=== PATIENT | female | born 1965 | race Caucasian/White ===

== ENCOUNTER 2017-11-26 11:15 | Emergency (ER) | payer OTHER ==
[~2017-11-26] VITALS: Ht 167.6 cm; Wt 59.0 kg
--- NOTE | 2017-11-26 11:20 | ED GENERAL ADULT ---
History of Present Illness General Chief Complaint: ETOH/Drug Related Complaint Stated Complaint: SENT BY [facility] FOR CLEARANCE Source: patient Exam Limitations: no limitations Vital Signs & Intake/Output Vital Signs & Intake/Output Vital Signs Date Time Temp Pulse Resp B/P B/P Pulse O2 O2 Flow FiO2 Mean Ox Delivery Rate 11/27 645 98.2 78 20 155/95 11/27 0646 98.2 78 20 155/95 92 Room Air 11/27 0400 98.0 76 20 132/82 11/27 0205 98.1 86 18 149/88 100 Room Air 11/27 0200 98.1 86 18 149/88 11/27 0030 98.2 76 20 116/72 11/26 2236 98.4 82 18 142/80 11/26 2236 98.4 82 18 142/80 100 Room Air 11/26 2037 97.0 90 18 145/87 96 Room Air 11/26 2036 97.0 90 16 145/87 11/26 1756 98.6 89 16 159/94 11/26 1753 98.6 89 16 159/94 97 11/26 1510 98.3 101 16 154/92 11/26 1502 98.3 101 16 154/92 98 / 1302 98.2 88 20 152/90 95 05/ 1300 98.2 88 20 152/90 11/26 1225 Room Air 11/26 1119 97.9 122 20 160/98 96 Room Air ED Intake and Output 11/27 0000 11/26 1200 Intake Total Output Total Balance Patient 130 lb Weight Weight Reported by Patient Measurement Method Allergies Coded Allergies: No Known Allergies (11/26/17) Reconcile Medications No Known Home Medications Triage Note: PT SENT IN FOR HIGHWATCH CLEARENCE. STATES LAST ETOH WAS YESTERDAY. PT DENIES SEIZURES WITH ETOH DETOX. DENIES SI/HI Triage Nurses Notes Reviewed? yes Onset: Abrupt Duration: week(s): Timing: recent history HPI: 11/26/17 32-year-old female presents to the emergency department for clearance for [facility] for alcohol rehabilitation. She denies any withdrawal seizures. She denies any drug use. Denies any significant past medical history. (Shola Cuba DO) Past History Travel History Traveled to [place] past 21 day No Medical History Any Pertinent Medical History? see below for history Neurological: NONE EENT: NONE Cardiovascular: NONE Respiratory: NONE Gastrointestinal: NONE Hepatic: NONE Renal: NONE Musculoskeletal: NONE Psychiatric: alcohol dependence Endocrine: NONE Surgical History Surgical History: none Psychosocial History What is your primary language Slovenian Tobacco Use: Current Daily Use Daily Tobacco Use Amount/Type: => 5 Cigarettes daily ETOH Use: alcoholic Illicit Drug Use: denies illicit drug use Family History Hx Contributory? No (Shola Cuba DO) Review of Systems Review of Systems Constitutional: Denies: fever. EENTM: Reports: no symptoms. Respiratory: Reports: no symptoms. Cardiovascular: Reports: no symptoms. GI: Reports: no symptoms. Genitourinary: Reports: no symptoms. Musculoskeletal: Reports: no symptoms. Skin: Reports: no symptoms. Neurological/Psychological: Reports: no symptoms. Hematologic/Endocrine: Reports: no symptoms. Immunologic/Allergic: Reports: no symptoms. (Shola Cuba DO) Physical Exam Physical Exam General Appearance: alert, awake, anxious, mild distress Head: atraumatic, normal appearance Eyes: Bilateral: normal appearance, PERRL, EOMI. Ears, Nose, Throat: normal pharynx, normal ENT inspection Neck: normal inspection, supple Respiratory: normal breath sounds, chest non-tender, no respiratory distress Cardiovascular: regular rate/rhythm Peripheral Pulses: 4+ radial (R), 4+ radial (L) Gastrointestinal: non-tender Back: vertebral tenderness Extremities: normal inspection, normal range of motion, no edema Neurologic/Psych: no motor/sensory deficits, awake, alert, oriented x 3 Skin: intact, normal color, warm/dry Core Measures ACS in differential dx? No CVA/TIA Diagnosis: No Sepsis Present: No Sepsis Focused Exam Completed? No (Shola Cuba DO) Progress Differential Diagnoses I considered the following diagnoses in my evaluation of the patient: [Alcohol dependency, delirium tremens, alcoholic hallucinosis] Plan of Care: Orders Procedure Date/time Status CIWA 11/26 1212 Active URINE DRUG SCREEN FOR ER ONLY 11/26 1212 Complete ETHANOL 11/26 1212 Complete COMPREHENSIVE METABOLIC PANEL 11/26 1212 Complete CBC WITHOUT DIFFERENTIAL 11/26 1212 Complete Laboratory Tests 11/26/17 1245: Urine Opiates Screen < 100, Methadone Screen < 40, Barbiturate Screen < 60, Ur Phencyclidine Scrn < 6.00, Amphetamines Screen 155, U Benzodiazepines Scrn < 85, Urine Cocaine Screen < 50, Urine Cannabis Screen < 5.00 11/26/17 1241: Anion Gap 17 H, Estimated GFR > 60, BUN/Creatinine Ratio 22.5, Glucose 104 H, Calcium 8.9, Total Bilirubin 0.6, AST 195 H, ALT 101 H, Alkaline Phosphatase 84, Total Protein 8.0, Albumin 4.5, Globulin 3.5, Albumin/Globulin Ratio 1.3, CBC w Diff NO MAN DIFF REQ, RBC 3.55 L, MCV 101.6 H, MCH 34.8 H, MCHC 34.3, RDW 14.6 H, MPV 7.9, Gran % 68.2, Lymphocytes % 19.2 L, Monocytes % 11.6 H, Eosinophils % 0.6, Basophils % 0.4, Absolute Granulocytes 3.2, Absolute Lymphocytes 0.9 L, Absolute Monocytes 0.5, Absolute Eosinophils 0, Absolute Basophils 0, Serum Alcohol 156.0 Initial ED EKG: none (Shola Cuba DO) Hand-Off Endorsed To: Shola Matthews MD Endorsed Time: 0700 Pending: other ([facility] to 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 11/27/2017 7:43:18 AM , appears comfortable and offers no complaint at this time. She is aware that transportation is en route for [facility]. (Cassie MCCRAY,Shola Jacques) Departure Departure Disposition: STILL A PATIENT Condition: Stable Clinical Impression Primary Impression: Alcohol abuse Departure Forms: Customer Survey General Discharge Information Prescriptions: Current Visit Scripts No Known Home Medications Comments 11/26/17 7:50 PM Patient was signed out to Dr. Riojas. She is for transfer to [facility] in the a.m. (Shola Cuba DO) Critical Care Note Critical Care Note Critical Care Time: 30-74 min (Shola Cuba DO)
[2017-11-26 12:55] LABS: ABSOLUTE BASOPHIL COUNT 0 /CUMM (0.0-0.2); ABSOLUTE EOSINOPHIL COUNT 0 /CUMM (0.0-0.7); ABSOLUTE GRANULOCYTE CT 3.2 /CUMM (1.4-6.5); ABSOLUTE LYMPH COUNT 0.9 /CUMM (1.2-3.4); ABSOLUTE MONOCYTE COUNT 0.5 /CUMM (0.10-0.60); BASOPHIL % 0.4 % (0.0-2.0); EOSINOPHIL % 0.6 % (0-5); GRANULOCYTE % 68.2 % (42.2-75.2); HEMATOCRIT 36.1 % (37-47); MEAN CORPUSCULAR HGB 34.8 PG (27.0-31.0); MEAN CORPUSCULAR HGB CONC 34.3 G/DL (33.0-37.0); MEAN CORPUSCULAR VOLUME 101.6 FL (81.0-99.0); MEAN PLATELET VOLUME 7.9 FL (7.4-10.4); PLATELET COUNT 127 /CUMM (130-400); RBC DISTRIBUTION WIDTH 14.6 % (11.5-14.5); RED BLOOD CELL CT 3.55 /CUMM (4.20-5.40); WHITE BLOOD CELL COUNT 4.7 /CUMM (4.8-10.8)
== END 2017-11-27 07:59 ==
LOC: ERH 11:15
PROVIDERS: Emergency Medicine
DX: F10.10 Alcohol abuse, uncomplicated (principal)
CPT/HCPCS: 80307; G0480